=== PATIENT | female | born 1995 | race Caucasian/White ===

== ENCOUNTER 2016-12-18 15:13 | Emergency (ER) | payer SELFPAY ==
[~2016-12-18 15:13] MED LIST: AMOXICILLIN; AMOXICILLIN500 M1 PO; FEROSUL325 M1; IBUPROFEN800 M1 PO; KEFLEX250 M2 PO; NORCO 5/3251 TAB PO; PRENATAL VITAM1 EAC6 PO; PRENATAL-U CAPS1 CAP PO; ZOFRAN4 M2 PO
[2016-12-18] MEDS ORDERED: AMOXICILLIN500 M2 PO (15:54)
== END 2016-12-18 16:30 ==
LOC: EDMED 15:13
DX: R09.89 Other specified symptoms and signs involving the circulatory and respiratory systems (principal); J03.00 Acute streptococcal tonsillitis, unspecified; F32.9 Major depressive disorder, single episode, unspecified; F17.210 Nicotine dependence, cigarettes, uncomplicated